=== PATIENT | female | born 1965 | race Caucasian/White ===

== ENCOUNTER → 2019-09-14 | Outpatient (CLI) | payer OTHER ==
[~2019-09-14] MED LIST: CITA20TA6 PO; ESOM20CA PO; HYOS0.1282 PO; MELO7.5T31 PO; TRAZ-137 PO
[2019-09-14 16:44] LABS: BASOPHILS # (AUTO) 0.05 x10^3/uL (0-0.1); BASOPHILS % (AUTO) 1 % (0-1); EOSINOPHILS # (AUTO) 0.29 x10^3/uL (0-0.4); EOSINOPHILS % (AUTO) 5 % (1-7); LYMPHOCYTES # (AUTO) 2.59 x10^3/uL (1-3.4); LYMPHOCYTES % (AUTO) 41 % (22-44); MD NO; MEAN CORPUSCULAR HGB CONC 32.9 g/dL (32.4-35.8); MEAN CORPUSCULAR VOLUME 97.2 fL (80-100); MEAN PLATELET VOLUME 7.6 fL (7.4-10.4); MONOCYTES # (AUTO) 0.38 x10^3/uL (0.2-0.8); MONOCYTES % (AUTO) 6 % (2-9); NEUTROPHILS # (AUTO) 3.04 x10^3/uL (1.8-6.8); NEUTROPHILS % (AUTO) 48 % (42-75); PLATELET COUNT 284 x10^3/uL (130-400); RED BLOOD COUNT 3.96 x10^6/uL (3.82-5.3); RED CELL DISTRIBUTION WIDTH 13.6 % (9.6-15.2)
[2019-09-14 16:51] LABS: ALBUMIN 3.7 g/dL (3.4-5.0); ANION GAP 4 mmol/L (5-15); CALCIUM 9.1 mg/dL (8.5-10.1); CHLORIDE 106 mmol/L (98-107)
[2019-09-14 16:52] LABS: INTERNATIONAL NORMALIZED RATIO 0.91 (0.93-1.1); PROTHROMBIN TIME 9.6 Seconds (9.6-11.5)
[2019-09-14 16:57] LABS: ALANINE AMINOTRANSFERASE 24 U/L (12-78); ALKALINE PHOSPHATASE 104 U/L (45-117); BILIRUBIN,TOTAL 0.3 mg/dL (0.2-1.0); CREATININE 0.93 mg/dL (0.55-1.02); TOTAL PROTEIN 7.8 g/dL (6.4-8.2)
[2019-09-14 17:03] LABS: HEMOGLOBIN A1C 5.1 % (4.2-6.3)
== END | disposition home or self-care (01) ==
LOC: STAR 15:50
PROVIDERS: ATTEND Orthopaedic Surgery
DX: Z01.818 Encounter for other preprocedural examination (principal); Z98.890 Other specified postprocedural states; M16.11 Unilateral primary osteoarthritis, right hip; M25.551 Pain in right hip; M79.672 Pain in left foot; M65.312 Trigger thumb, left thumb; Z87.891 Personal history of nicotine dependence
CPT/HCPCS: 36415; 80053; 83036; 85025; 85610; 85730; 87081; 93005

== ENCOUNTER 2019-09-27 11:48 | Inpatient (IN) | payer OTHER ==
[~2019-09-27] VITALS: Ht 172.7 cm; Wt 102.6 kg
[~2019-09-27 11:48] MED LIST changes: +CEFAZOLIN 1,000 MG ONE; +EPINEPHRINE 1 MG/ML, 1ML ONE; +FENTANYL PF 250 MCG/5ML ONE; +KETOROLAC 60 MG/2 ML ONE; +LIDOCAINE-MPF 2% ,5ML ONE; +MIDAZOLAM 1 MG/ML, 2ML ONE; +ONDANSETRON 2MG/ML, 2ML ONE; +PROPOFOL 10 MG/ML, 20ML ONE; +ROPIvacaine/PF 0.5%, 30 ML ONE; +SODIUM CHLORIDE 0.9% 50 ML ONE; +TRANEXAMIC ACID 100 MG/ML, 10ML ONE; +VANCOMYCIN 1,000 MG ONE
[2019-09-27] MEDS ORDERED: ONDANSETRON 2MG/ML, 2ML IV PRN ×2 (12:30→14:00)
[2019-09-27] MEDS ORDERED: METOCLOPRAMIDE 5 MG/ML, 2ML IV PRN (12:30)
[2019-09-27] MEDS ORDERED: LABETALOL 5MG/ML, 20ML IV PRN (12:30)
[2019-09-27] MEDS ORDERED: LORazepam 2 MG/ML, 1ML IVPush PRN (12:30)
[2019-09-27] MEDS ORDERED: MEPERIDINE/PF 25MG/ML,1ML IVPush PRN (12:30)
[2019-09-27] MEDS ORDERED: hydrALAzine 20 MG/ML, 1ML IV PRN (12:30)
[2019-09-27] MEDS ORDERED: LACTATED RINGERS 1,000 ML IV SCH (12:33)
[2019-09-27] MEDS ORDERED: ROCURONIUM 10 MG/ML,10ML ONE (13:54)
[2019-09-27] MEDS ORDERED: NEOSTIGMINE 1 MG/ML, 10ML ONE (13:54)
[2019-09-27] MEDS ORDERED: GLYCOPYRROLATE 0.2MG/1ML, 5ML ONE (13:54)
[2019-09-27] MEDS ORDERED: ONDANSETRON 4 MG TABLET PO PRN (14:00)
[2019-09-27] MEDS ORDERED: HYDROcodone/APAP 5/325 TABLET PO PRN (14:00)
[2019-09-27] MEDS ORDERED: MAGNESIUM HYDROXIDE 8%, 30ML UDC PO PRN (14:00)
[2019-09-27] MEDS ORDERED: ACETAMINOPHEN 650 MG/20.3 ML UDC PO PRN (14:00)
[2019-09-27] MEDS ORDERED: BISACODYL 10 MG SUPP PR PRN (14:00)
[2019-09-27] MEDS ORDERED: DIPHENHYDRAMINE 25 MG CAPSULE PO PRN (14:00)
[2019-09-27] MEDS ORDERED: HYOSCYAMINE 0.125 MG TABLET PO PRN (14:00)
[2019-09-27] MEDS ORDERED: SENNA/DOCUSATE TABLET PO PRN (14:00)
[2019-09-27] MEDS ORDERED: SCOPOLAMINE PATCH, 1.5MG PATCH.TD72 TD ONE (14:00)
[2019-09-27] MEDS ORDERED: HYDROmorphone 1 MG/ML, 1ML VIAL ONE (15:17)
[2019-09-27] MEDS ORDERED: OXYcodone 5 MG/5 ML ORAL.SOL UDC ONE (15:17)
[2019-09-27] MEDS ORDERED: FENTANYL PF 100 MCG/2ML ONE ×2 (15:17→15:46)
[2019-09-27] MEDS: FENTANYL PF 100 MCG/2ML IV PRN ×3 (15:22→15:48)
[2019-09-27] MEDS: HYDROmorphone 2 MG/ML, 1ML IVPush PRN ×2 (15:23→15:27)
[2019-09-27] MEDS ORDERED: LORazepam 2 MG/ML, 1ML ONE (15:35)
[2019-09-27] MEDS ORDERED: TRANEXAMIC ACID 100 MG/ML, 10ML IV ONE (16:00)
[2019-09-27] MEDS ORDERED: OXYcodone 5 MG/5 ML ORAL.SOL UDC PO PRN (16:00)
[2019-09-27] MEDS ORDERED: TRANEXAMIC ACID 1,000 MG in SODIUM CHLORIDE 0.9% 100 ML IVPB ONE (16:00)
[2019-09-27 17:05] VITALS: BP 134/86
[2019-09-27] MEDS: ASPIRIN 81 MG TABLET EC PO SCH (17:55)
[2019-09-27] MEDS: NS + 20MEQ KCL 1,000 ML IV SCH (17:55)
[2019-09-27 19:37] VITALS: BP 111/70
[2019-09-27] MEDS: OXYcodone IR 5MG TABLET PO PRN ×2 (19:53→23:54)
[2019-09-27] MEDS: DOCUSATE 100 MG CAPSULE PO SCH (19:53)
[2019-09-27] MEDS ORDERED: TRAZODONE 100MG TABLET PO SCH (21:00)
[2019-09-27] MEDS ORDERED: ZOLPIDEM 5MG TABLET PO PRN (21:00)
[2019-09-27] MEDS: CEFAZOLIN PMX 2GM/50ML 50 ML IVPB SCH (21:56)
[2019-09-27 23:55] VITALS: BP 137/83
[2019-09-28] MEDS: OXYcodone IR 5MG TABLET PO PRN ×3 (03:55→13:10)
[2019-09-28 04:02] VITALS: BP 129/85
[2019-09-28] MEDS: NS + 20MEQ KCL 1,000 ML IV SCH (05:29)
[2019-09-28] MEDS: CEFAZOLIN PMX 2GM/50ML 50 ML IVPB SCH (05:40)
[2019-09-28] MEDS: ASPIRIN 81 MG TABLET EC PO SCH (05:40)
[2019-09-28] MEDS ORDERED: DEXAMETHASONE 4 MG/ML, 1ML IVPush SCH (06:00)
[2019-09-28] MEDS ORDERED: PANTOPROZOLE 40MG TABLET PO SCH (07:00)
[2019-09-28 08:03] VITALS: BP 134/83
[2019-09-28] MEDS ORDERED: CITALOPRAM 20 MG TABLET PO SCH (09:00)
[2019-09-28] MEDS ORDERED: PANTOPROZOLE 40MG TABLET PO ONE (09:00)
[2019-09-28] MEDS ORDERED: CALCIUM CARBONATE 500 MG TAB.CHEW PO PRN (09:00)
[2019-09-28] MEDS ORDERED: CALCIUM CARBONATE 500 MG TAB.CHEW ONE (09:00)
[2019-09-28] MEDS: DOCUSATE 100 MG CAPSULE PO SCH (09:01)
[2019-09-28 13:20] VITALS: BP 111/69
[2019-09-28] MEDS ORDERED: OXYC5CAP2 PO (16:09)
[2019-09-28] MEDS ORDERED: TRAM50TA2 PO (16:12)
[2019-09-28] MEDS ORDERED: ASPI81TA45 PO (16:21)
[2019-09-28] MEDS ORDERED: FLU VACC QS2019-20 36MOS UP/PF 0.5 ML IM-VACC ONE (16:30)
== END 2019-09-28 16:57 | disposition home or self-care (01) | DRG 470 ==
LOC: ORIP 11:48 → 4NE 16:53 → DCLOUNGE 09-28 16:45
PROVIDERS: ADMIT Orthopaedic Surgery; ATTEND Orthopaedic Surgery
PROC: 0SR906A Replacement of Right Hip Joint with Oxidized Zirconium on Polyethylene Synthetic Substitute, Uncemented, Open Approach (ICD-10-PCS; principal; 2019-09-27 13:45)
DX: M16.11 Unilateral primary osteoarthritis, right hip (principal); I10 Essential (primary) hypertension; K21.9 Gastro-esophageal reflux disease without esophagitis
CPT/HCPCS: 36415; 72170; 73501; 76000; 85014; 85018; 90686; 97161; 97165; C1713; C1776; J0171; J0690; J1100; J1170; J1885; J2060; J2250; J2405; J2704; J2710; J2795; J3010; J3370; J3480; J3490; J7120; G0378

== ENCOUNTER 2020-05-22 10:33 | Emergency (ER) | payer OTHER ==
[~2020-05-22] VITALS: Ht 172.7 cm; Wt 92.9 kg
[~2020-05-22 10:33] MED LIST changes: +ASPI81TA45 PO; -CEFAZOLIN 1,000 MG ONE; -EPINEPHRINE 1 MG/ML, 1ML ONE; -FENTANYL PF 250 MCG/5ML ONE; -KETOROLAC 60 MG/2 ML ONE; -LIDOCAINE-MPF 2% ,5ML ONE; -MIDAZOLAM 1 MG/ML, 2ML ONE; -ONDANSETRON 2MG/ML, 2ML ONE; +OXYC5CAP2 PO; -PROPOFOL 10 MG/ML, 20ML ONE; -ROPIvacaine/PF 0.5%, 30 ML ONE; -SODIUM CHLORIDE 0.9% 50 ML ONE; +TRAM50TA2 PO; -TRANEXAMIC ACID 100 MG/ML, 10ML ONE; -TRAZ-137 PO; +TRAZ-175 PO; -VANCOMYCIN 1,000 MG ONE
--- NOTE | 2020-05-22 12:39 | NUR ---
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 STEADY UPON AMBULATION. NO ACUTE DISTRESS NOTED.
[2020-05-22 12:47] LABS: BASOPHILS # (AUTO) 0.05 x10^3/uL (0-0.1); BASOPHILS % (AUTO) 1 % (0-1); EOSINOPHILS # (AUTO) 0.11 x10^3/uL (0-0.4); EOSINOPHILS % (AUTO) 1 % (1-7); LYMPHOCYTES % (AUTO) 30 % (22-44); MD NO; MEAN CORPUSCULAR HEMOGLOBIN 32.1 pg (27.0-34.8); MEAN CORPUSCULAR HGB CONC 33.8 g/dL (32.4-35.8); MEAN PLATELET VOLUME 7.7 fL (7.4-10.4); MONOCYTES # (AUTO) 0.65 x10^3/uL (0.2-0.8); MONOCYTES % (AUTO) 8 % (2-9); NEUTROPHILS # (AUTO) 4.77 x10^3/uL (1.8-6.8); NEUTROPHILS % (AUTO) 60 % (42-75); PLATELET COUNT 341 x10^3/uL (130-400); RED BLOOD COUNT 4.43 x10^6/uL (3.82-5.3); RED CELL DISTRIBUTION WIDTH 12.3 % (9.6-15.2)
[2020-05-22] MEDS ORDERED: ONDANSETRON 2MG/ML, 2ML ONE (12:48)
[2020-05-22] MEDS ORDERED: SODIUM CHLORIDE 0.9% 1,000ML IVBOLUS ONE (13:00)
[2020-05-22] MEDS ORDERED: ONDANSETRON 2MG/ML, 2ML IVPush ONE (13:00)
[2020-05-22 13:01] LABS: ALANINE AMINOTRANSFERASE 42 U/L (12-78); ALBUMIN 3.7 g/dL (3.4-5.0); ANION GAP 9 mmol/L (5-15); CALCIUM 9.6 mg/dL (8.5-10.1); CHLORIDE 106 mmol/L (98-107); CREATININE 1.49 mg/dL (0.55-1.02)
--- NOTE | 2020-05-22 13:02 | NUR ---
PT UPRIGHT ON GURNEY AWAKE & COMFORTABLE, RESPONDS APPROP TO STAFF, NAD " LONG I'M EMPTY", COMFORT MEASURES PROVIDED, CALL LIGHT WITHIN REACH.
[2020-05-22 13:04] LABS: ALKALINE PHOSPHATASE 125 U/L (45-117); BILIRUBIN,TOTAL 0.5 mg/dL (0.2-1.0); TOTAL PROTEIN 8.2 g/dL (6.4-8.2)
[2020-05-22 13:50] LABS: MICROSCOPIC INDICATED
--- NOTE | 2020-05-22 13:53 | NUR ---
BREAK RN: STOOL COLLECTED AND SENT TO LAB.
--- NOTE | 2020-05-22 14:00 | NUR ---
BREAK RN: PT RESTING ON GURNEY W/ CALL LIGHT IN REACH AND FAMILY AT BEDSIDE. FAHAD COLEMAN.
--- NOTE | 2020-05-22 15:04 | NUR ---
PT REMAINS UPRIGHT ON GURNEY AWAKE & COMFORTABLE, AWAITING STOOL RESULTS, RESPONDS APPROP TO STAFF, NAD, COMFORT MEASURES PROVIDED, VISITOR AT BS, CALL LIGHT WITHIN REACH.
[2020-05-22 16:02] VITALS: BP 107/63
--- NOTE | 2020-05-22 16:02 | NUR ---
PT UPRIGHT ON GURNEY AWAKE & COMFORTABLE, AWAITING STOOL RESULTS, RESPONDS APPROP TO STAFF, NAD, COMFORT MEASURES PROVIDED, VISITOR AT BS, CALL LIGHT WITHIN REACH.
[2020-05-22 16:19] LABS: CLOSTRIDIUM DIFFICILE ANTIGEN NEGATIVE; CLOSTRIDIUM DIFFICILE TOXIN NEGATIVE (Negative)
[2020-05-22 16:20] LABS: CRYPTOSPORIDIUM ANTIGEN Negative (Negative)
--- NOTE | 2020-05-22 17:42 | NUR ---
Patient given discharge instructions and Rx, they have confirmed that they understand the instructions. Patient ambulatory with steady gait.
== END 2020-05-22 18:38 | disposition home or self-care (01) ==
LOC: ED 12:45
DX: E87.6 Hypokalemia (principal); N28.9 Disorder of kidney and ureter, unspecified; R11.2 Nausea with vomiting, unspecified; R19.7 Diarrhea, unspecified; R10.84 Generalized abdominal pain
CPT/HCPCS: 36415; 80053; 81001; 83690; 85025; 87046; 87086; 87252; 87324; 87328; 87329; 89055; 96361; 96374; 99285; J2405; J7030

== ENCOUNTER → 2020-06-03 | Outpatient (CLI) | payer OTHER | END | disposition home or self-care (01) | LOC: CFH 16:14 | PROVIDERS: ATTEND Family Medicine | DX: M71.21 Synovial cyst of popliteal space [Baker], right knee (principal); R60.0 Localized edema ==

== ENCOUNTER → 2020-09-13 | Outpatient (CLI) | payer OTHER | END | disposition home or self-care (01) | LOC: CFH 13:03 | PROVIDERS: ATTEND Obstetrics & Gynecology Maternal & Fetal Medicine | DX: Z12.31 Encounter for screening mammogram for malignant neoplasm of breast (principal) | CPT/HCPCS: 77063; 77067 ==